=== PATIENT | female | born 1955 | race Caucasian/White ===

== ENCOUNTER 2017-09-21 15:45 | Inpatient (IN) | payer OTHER ==
[~2017-09-21] VITALS: Ht 162.6 cm; Wt 80.2 kg
[~2017-09-21 15:45] MED LIST: ACEBUTCAFT PO; ALBU3IS INH; ALBU90OI; ALBU90OI INH; ALBU90OI6 INH; ASPI81CH PO; AZIT250 PO; BECL80OI INH; BUDE.5 NEB; CEFD300 PO; CEPH500 PO; CHOL10002 PO; CODBUTACEC PO; COMBIVENT RESPIM4 GM INH; CYCL10 PO; Celexa10 MG PO; DIAZ5; DIAZ5 PO; DOXY100; DOXY100 PO; Esgic Tablet1 EACH PO; FIORICET 50-301 EACH PO; FIORICET-COD 51 EACH PO; FLUSAL1005; FLUSAL2505; FLUSAL2505 INH; GABA300 PO; GUAI600T33 PO; HARVONI 90-4001 EACH PO; HYDACE10B PO; HYDACE5 PO; HYDR1TAB94 PO; KETO10 PO; LEVO750 PO; MECL25 PO; META800 PO; Mucinex1200 MG PO; NAPR250 PO; NAPR500 PO; NAPR550 PO; NAPROXEN; NITR.4SL SL; Nitrostat0.4 MG SL; PRED10 PO; PRED20 PO; PRED5 PO; PROM25 PO; Percocet 5-3251 EACH PO; Phenergan25 M1 PO; Prednisone20 MG PO; SPIRIVA; TIOT18 INH; TRAM50 PO; Ventolin Soln3 ML INH; Zithromax250 MG PO; [UNRECOGNIZED DRUG - OTHER]; [UNRECOGNIZED DRUG - SUPPLY] MC
[2017-09-21 17:21] LABS: PCO2 Arterial 39.6 mmHg (35-45); PO2 Arterial 62.6 mmHg (80-100); pH Blood Arterial 7.42 (7.35-7.45)
[2017-09-21 17:29] LABS: BASOPHILS ABSOLUTE AUTO 0.02 K/mm3 (0.00-0.23); BASOPHILS PERCENT AUTO 0 % (0-2); EOSINOPHILS PERCENT AUTO 0 % (0-6); Hematocrit 46.3 % (33.0-51.0); Hemoglobin 15.3 g/dL (11.5-16.0); IMMATURE GRAN ABSOLUTE AUTO 0.02 K/mm3 (0.00-0.10); IMMATURE GRAN PERCENT AUTO 0 % (0-1); LYMPHOCYTES PERCENT AUTO 16 % (21-46); MONOCYTES ABSOLUTE AUTO 0.37 K/mm3 (0.16-1.47); MONOCYTES PERCENT AUTO 7 % (4-13); Mean Corpuscular HGB 30.3 pg (26.0-34.0); Mean Corpuscular Volume 92 fL (80-100); Mean Platelet Volume 9.4 fL (9.1-12.4); NEUTROPHILS PERCENT AUTO 76 % (41-73); Platelet Count 182 K/mm3 (150-400); RDW Coefficient Variation 13.2 % (11.7-14.2); RDW Standard Deviation 44.4 fL (35.1-46.3); Red Blood Cell Count 5.05 M/mm3 (3.80-5.20); White Blood Cell Count 5.11 K/mm3 (4.00-11.30)
[2017-09-21 17:52] LABS: Alanine Aminotransfer (ALT/SGP 28 U/L (12-78); Albumin/Globulin Ratio 1.1 (0.8-1.8); Alk Phos 77 U/L (50-136); Anion Gap 9 mmol/L (6-16); Aspartate Aminotrans (AST/SGOT 27 U/L (12-37); Bilirubin, Total 0.3 mg/dL (0.1-1.0); Blood Urea Nitrogen 8 mg/dL (8-24); Bun/Creatinine Ratio 12.6 (12.0-20.0); CO2, Blood 25 mmol/L (21-32); Calcium, Blood 8.6 mg/dL (8.5-10.1); Chloride, Blood 106 mmol/L (98-108); Creatinine, Blood 0.63 mg/dL (0.40-1.00); Globulin, Blood 3.7 g/dL (2.2-4.0); Glomerular Filtration Rate >60 (60-); Glucose, Blood 86 mg/dL (70-99); Potassium, Blood 4.1 mmol/L (3.5-5.5); Sodium, Blood 140 mmol/L (136-145); Total Protein, Blood 7.7 g/dL (6.4-8.2); Troponin I <0.015 ng/mL (0.000-0.040)
[2017-09-21 20:26] LABS: Influenza A Negative (NEGATIVE); Influenza B Negative (NEGATIVE)
[2017-09-22 06:33] LABS: BASOPHILS PERCENT AUTO 0 % (0-2); EOSINOPHILS PERCENT AUTO 0 % (0-6); Hematocrit 43.8 % (33.0-51.0); Hemoglobin 14.4 g/dL (11.5-16.0); IMMATURE GRAN ABSOLUTE AUTO 0.02 K/mm3 (0.00-0.10); IMMATURE GRAN PERCENT AUTO 0 % (0-1); LYMPHOCYTES ABSOLUTE AUTO 0.48 K/mm3 (0.84-5.20); LYMPHOCYTES PERCENT AUTO 10 % (21-46); MONOCYTES ABSOLUTE AUTO 0.05 K/mm3 (0.16-1.47); MONOCYTES PERCENT AUTO 1 % (4-13); Mean Corpuscular HGB Conc 32.9 g/dL (31.5-36.5); Mean Corpuscular Volume 91 fL (80-100); Mean Platelet Volume 9.7 fL (9.1-12.4); NEUTROPHILS ABSOLUTE AUTO 4.22 K/mm3 (1.96-9.15); NEUTROPHILS PERCENT AUTO 89 % (41-73); Platelet Count 186 K/mm3 (150-400); RDW Coefficient Variation 13.1 % (11.7-14.2); RDW Standard Deviation 44.3 fL (35.1-46.3); White Blood Cell Count 4.77 K/mm3 (4.00-11.30)
[2017-09-22 06:50] LABS: Anion Gap 10 mmol/L (6-16); Blood Urea Nitrogen 9 mg/dL (8-24); Bun/Creatinine Ratio 17.5 (12.0-20.0); CO2, Blood 25 mmol/L (21-32); Calcium, Blood 8.4 mg/dL (8.5-10.1); Chloride, Blood 105 mmol/L (98-108); Creatinine, Blood 0.51 mg/dL (0.40-1.00); Glomerular Filtration Rate >60 (60-); Glucose, Blood 114 mg/dL (70-99); Sodium, Blood 140 mmol/L (136-145)
[2017-09-24] MEDS ORDERED: FIORICET PO (08:34)
[2017-09-24] MEDS ORDERED: CODEINE PO (08:34)
[2017-09-24] MEDS ORDERED: GUAIFENESIN1200 MG PO (08:40)
[2017-09-24] MEDS ORDERED: DELTASONE20 MG PO (08:42)
[2017-09-24] MEDS ORDERED: AZIT250 PO (08:43)
== END 2017-09-24 10:19 | disposition home or self-care (01) | DRG 189 ==
LOC: ER 15:45 → MEDS 19:18 → ENPENDDIS 09-24 08:27 → MEDS 09-24 10:19
PROVIDERS: Emergency Medicine; Internal Medicine; Physician Assistant
DX: J96.01 Acute respiratory failure with hypoxia (principal); J44.1 Chronic obstructive pulmonary disease with (acute) exacerbation; G43.909 Migraine, unspecified, not intractable, without status migrainosus; M79.7 Fibromyalgia; I25.10 Atherosclerotic heart disease of native coronary artery without angina pectoris; F17.200 Nicotine dependence, unspecified, uncomplicated; Z71.6 Tobacco abuse counseling; Z88.5 Allergy status to narcotic agent; Z88.2 Allergy status to sulfonamides; Z88.6 Allergy status to analgesic agent; Z91.030 Bee allergy status; Z79.1 Long term (current) use of non-steroidal anti-inflammatories (NSAID); Z79.82 Long term (current) use of aspirin; Z79.899 Other long term (current) drug therapy
CPT/HCPCS: 36415; 36600; 71046; 80048; 80053; 82803; 84484; 85025; 87040; 87070; 87205; 87804; 93005; 93010; 94640; 94644; 94760; 96374; 96375; 99285; J0456; J1650; J2930; J7030; J7050

== ENCOUNTER 2017-11-19 12:29 | Inpatient (IN) | payer OTHER ==
[~2017-11-19] VITALS: Ht 162.6 cm; Wt 79.9 kg
[~2017-11-19 12:29] MED LIST changes: +CODEINE PO; +DELTASONE20 MG PO; +FIORICET PO; +GUAIFENESIN1200 MG PO
[2017-11-19 13:59] LABS: Hematocrit 45.6 % (33.0-51.0); Hemoglobin 15.2 g/dL (11.5-16.0); Mean Corpuscular HGB 30.1 pg (26.0-34.0); Mean Corpuscular HGB Conc 33.3 g/dL (31.5-36.5); Mean Corpuscular Volume 90 fL (80-100); Mean Platelet Volume 9.6 fL (9.1-12.4); Platelet Count 159 K/mm3 (150-400); RDW Coefficient Variation 13.4 % (11.7-14.2); RDW Standard Deviation 45.1 fL (35.1-46.3); Red Blood Cell Count 5.05 M/mm3 (3.80-5.20); White Blood Cell Count 4.71 K/mm3 (4.00-11.30)
[2017-11-19 14:10] LABS: PCO2 Arterial 40.3 mmHg (35-45); PO2 Arterial 46 mmHg (80-100); pH Blood Arterial 7.46 (7.35-7.45)
[2017-11-19 14:19] LABS: Alanine Aminotransfer (ALT/SGP 31 U/L (12-78); Albumin, Blood 3.6 g/dL (3.4-5.0); Albumin/Globulin Ratio 0.9 (0.8-1.8); Alk Phos 76 U/L (50-136); Anion Gap 8 mmol/L (6-16); Aspartate Aminotrans (AST/SGOT 34 U/L (12-37); Bilirubin, Total 0.3 mg/dL (0.1-1.0); Blood Urea Nitrogen 9 mg/dL (8-24); Bun/Creatinine Ratio 15.7 (12.0-20.0); CO2, Blood 27 mmol/L (21-32); Calcium, Blood 8.6 mg/dL (8.5-10.1); Chloride, Blood 101 mmol/L (98-108); Creatinine, Blood 0.58 mg/dL (0.40-1.00); Globulin, Blood 3.8 g/dL (2.2-4.0); Glomerular Filtration Rate >60 (60-); Glucose, Blood 146 mg/dL (70-99); Potassium, Blood 3.8 mmol/L (3.5-5.5); Sodium, Blood 136 mmol/L (136-145); Total Protein, Blood 7.4 g/dL (6.4-8.2)
[2017-11-19 14:25] LABS: BAND PERCENT MAN 14 % (0-8); BASOPHILS PERCENT MAN 0 % (0-2); EOSINOPHILS PERCENT MAN 0 % (0-6); LYMPHOCYTES ABSOLUTE MAN 0.28 K/mm3 (0.84-5.20); LYMPHOCYTES PERCENT MAN 6 % (21-46); MONOCYTES ABSOLUTE MAN 0.09 K/mm3 (0.16-1.47); MONOCYTES PERCENT MAN 2 % (4-13); NEUTROPHILS ABSOLUTE MAN 4.33 K/mm3 (1.96-9.15); SEG NEUTROPHILS PERCENT MAN 78 % (41-73); TOTAL CELLS COUNTED 100
[2017-11-19] MEDS ORDERED: DULERA 100 MCG/13 GM INH (18:21)
[2017-11-20 06:42] LABS: Influenza A Negative (NEGATIVE); Influenza B Negative (NEGATIVE)
[2017-11-21 05:09] LABS: Hematocrit 43.1 % (33.0-51.0); Hemoglobin 14.5 g/dL (11.5-16.0); Mean Corpuscular HGB 30.3 pg (26.0-34.0); Mean Corpuscular HGB Conc 33.6 g/dL (31.5-36.5); Mean Corpuscular Volume 90 fL (80-100); Mean Platelet Volume 9.7 fL (9.1-12.4); Platelet Count 165 K/mm3 (150-400); RDW Coefficient Variation 13.3 % (11.7-14.2); RDW Standard Deviation 44.4 fL (35.1-46.3); Red Blood Cell Count 4.78 M/mm3 (3.80-5.20); White Blood Cell Count 4.69 K/mm3 (4.00-11.30)
[2017-11-21 05:35] LABS: Anion Gap 9 mmol/L (6-16); Blood Urea Nitrogen 15 mg/dL (8-24); Bun/Creatinine Ratio 23.3 (12.0-20.0); CO2, Blood 28 mmol/L (21-32); Calcium, Blood 8.7 mg/dL (8.5-10.1); Chloride, Blood 102 mmol/L (98-108); Creatinine, Blood 0.65 mg/dL (0.40-1.00); Glomerular Filtration Rate >60 (60-); Glucose, Blood 118 mg/dL (70-99); Potassium, Blood 3.8 mmol/L (3.5-5.5); Sodium, Blood 139 mmol/L (136-145)
[2017-11-22] MEDS ORDERED: BENZ100A PO (10:30)
[2017-11-22] MEDS ORDERED: PROBIOTIC1 EACH PO (10:39)
[2017-11-22] MEDS ORDERED: DOXY100 PO (10:40)
[2017-11-23] MEDS ORDERED: Esgic Tablet1 EACH PO (11:31)
[2017-11-23] MEDS ORDERED: NAPR220 PO (11:35)
[2017-11-23] MEDS ORDERED: ALBU3IS INH (11:37)
[2017-11-23] MEDS ORDERED: Albuterol2.5 MG/0.5 INH (11:38)
== END 2017-11-22 12:20 | disposition home or self-care (01) | DRG 193 ==
LOC: ER 12:29 → MEDS 15:59 → ENPENDDIS 11-22 09:52 → MEDS 11-22 12:20
PROVIDERS: Emergency Medicine; Internal Medicine
DX: J18.9 Pneumonia, unspecified organism (principal); J96.01 Acute respiratory failure with hypoxia; J44.0 Chronic obstructive pulmonary disease with (acute) lower respiratory infection; J44.1 Chronic obstructive pulmonary disease with (acute) exacerbation; G89.29 Other chronic pain; I25.10 Atherosclerotic heart disease of native coronary artery without angina pectoris; Z87.891 Personal history of nicotine dependence; Z88.5 Allergy status to narcotic agent; Z88.2 Allergy status to sulfonamides; Z88.8 Allergy status to other drugs, medicaments and biological substances; Z88.6 Allergy status to analgesic agent; Z91.038 Other insect allergy status; Z79.1 Long term (current) use of non-steroidal anti-inflammatories (NSAID); Z79.82 Long term (current) use of aspirin; Z79.52 Long term (current) use of systemic steroids; Z79.899 Other long term (current) drug therapy
CPT/HCPCS: 36415; 36600; 71045; 71046; 80048; 80053; 82803; 83605; 84145; 85025; 85027; 87040; 87804; 93005; 93010; 94640; 94644; 94760; 94761; 96365; 96366; 96368; 96375; 99285; C1751; J0696; J1650; J1956; J2920; J2930; J7120

== ENCOUNTER 2017-11-23 07:25 | Inpatient (IN) | payer OTHER ==
[~2017-11-23] VITALS: Ht 162.6 cm; Wt 77.0 kg
[~2017-11-23 07:25] MED LIST changes: +BENZ100A PO; +DULERA 100 MCG/13 GM INH; +PROBIOTIC1 EACH PO
[2017-11-23 08:13] LABS: BASOPHILS ABSOLUTE AUTO 0.02 K/mm3 (0.00-0.23); BASOPHILS PERCENT AUTO 0 % (0-2); EOSINOPHILS ABSOLUTE AUTO 0.01 K/mm3 (0.00-0.68); EOSINOPHILS PERCENT AUTO 0 % (0-6); Hematocrit 49.2 % (33.0-51.0); IMMATURE GRAN ABSOLUTE AUTO 0.06 K/mm3 (0.00-0.10); IMMATURE GRAN PERCENT AUTO 1 % (0-1); LYMPHOCYTES ABSOLUTE AUTO 3.19 K/mm3 (0.84-5.20); LYMPHOCYTES PERCENT AUTO 47 % (21-46); MONOCYTES ABSOLUTE AUTO 0.57 K/mm3 (0.16-1.47); MONOCYTES PERCENT AUTO 8 % (4-13); Mean Corpuscular HGB 30.4 pg (26.0-34.0); Mean Corpuscular HGB Conc 32.5 g/dL (31.5-36.5); Mean Platelet Volume 9.1 fL (9.1-12.4); NEUTROPHILS PERCENT AUTO 44 % (41-73); Platelet Count 199 K/mm3 (150-400); RDW Coefficient Variation 13.3 % (11.7-14.2); RDW Standard Deviation 45.8 fL (35.1-46.3); Red Blood Cell Count 5.26 M/mm3 (3.80-5.20); White Blood Cell Count 6.85 K/mm3 (4.00-11.30)
[2017-11-23 08:19] LABS: Mean Corpuscular Volume 94 fL (80-100)
[2017-11-23 08:20] LABS: Anion Gap 7 mmol/L (6-16); Blood Urea Nitrogen 16 mg/dL (8-24); CO2, Blood 29 mmol/L (21-32); Calcium, Blood 8.8 mg/dL (8.5-10.1); Chloride, Blood 102 mmol/L (98-108); Creatinine, Blood 0.62 mg/dL (0.40-1.00); Glomerular Filtration Rate >60 (60-); Glucose, Blood 94 mg/dL (70-99); Potassium, Blood 3.5 mmol/L (3.5-5.5); Sodium, Blood 138 mmol/L (136-145)
[2017-11-23 08:26] LABS: PCO2 Arterial 44.7 mmHg (35-45); PO2 Arterial 59.2 mmHg (80-100); pH Blood Arterial 7.44 (7.35-7.45)
[2017-11-23] MEDS ORDERED: Esgic Tablet1 EACH PO (11:31)
[2017-11-23] MEDS ORDERED: NAPR220 PO (11:35)
[2017-11-23] MEDS ORDERED: ALBU3IS INH (11:37)
[2017-11-23] MEDS ORDERED: Albuterol2.5 MG/0.5 INH (11:38)
[2017-11-24 05:12] LABS: BASOPHILS ABSOLUTE AUTO 0.01 K/mm3 (0.00-0.23); BASOPHILS PERCENT AUTO 0 % (0-2); EOSINOPHILS PERCENT AUTO 0 % (0-6); Hematocrit 42.3 % (33.0-51.0); Hemoglobin 14.2 g/dL (11.5-16.0); IMMATURE GRAN ABSOLUTE AUTO 0.04 K/mm3 (0.00-0.10); IMMATURE GRAN PERCENT AUTO 1 % (0-1); LYMPHOCYTES ABSOLUTE AUTO 0.95 K/mm3 (0.84-5.20); LYMPHOCYTES PERCENT AUTO 19 % (21-46); MONOCYTES ABSOLUTE AUTO 0.16 K/mm3 (0.16-1.47); MONOCYTES PERCENT AUTO 3 % (4-13); Mean Corpuscular HGB 30.3 pg (26.0-34.0); Mean Corpuscular HGB Conc 33.6 g/dL (31.5-36.5); Mean Platelet Volume 9.3 fL (9.1-12.4); NEUTROPHILS PERCENT AUTO 77 % (41-73); Platelet Count 158 K/mm3 (150-400); RDW Coefficient Variation 13.2 % (11.7-14.2); RDW Standard Deviation 43.5 fL (35.1-46.3); Red Blood Cell Count 4.69 M/mm3 (3.80-5.20); White Blood Cell Count 4.96 K/mm3 (4.00-11.30)
[2017-11-24 05:15] LABS: Mean Corpuscular Volume 90 fL (80-100)
[2017-11-24 05:40] LABS: Albumin, Blood 3.2 g/dL (3.4-5.0); Anion Gap 8 mmol/L (6-16); Blood Urea Nitrogen 10 mg/dL (8-24); Bun/Creatinine Ratio 21.4 (12.0-20.0); CO2, Blood 28 mmol/L (21-32); Calcium, Blood 8.4 mg/dL (8.5-10.1); Chloride, Blood 104 mmol/L (98-108); Creatinine, Blood 0.47 mg/dL (0.40-1.00); Glomerular Filtration Rate >60 (60-); Glucose, Blood 143 mg/dL (70-99); Phosphorus, Blood 2.8 mg/dL (2.5-4.9); Potassium, Blood 4.2 mmol/L (3.5-5.5); Sodium, Blood 140 mmol/L (136-145)
[2017-11-30] MEDS ORDERED: ALBU2.5V5 NEB (12:22)
[2017-11-30] MEDS ORDERED: ACIDOPHILUS1 EACH PO (12:38)
[2017-11-30] MEDS ORDERED: Prednisone10 MG PO (12:46)
== END 2017-11-30 13:25 | disposition home or self-care (01) | DRG 189 ==
LOC: ER 07:25 → MEDS 10:03 → PCU 10:03 → MEDS 11-25 18:15 → ENPENDDIS 11-30 12:00 → MEDS 11-30 13:25
PROVIDERS: Emergency Medicine; Family Medicine
PROC: 5A09357 Assistance with Respiratory Ventilation, Less than 24 Consecutive Hours, Continuous Positive Airway Pressure (ICD-10-PCS; principal; 2017-11-23)
DX: J96.21 Acute and chronic respiratory failure with hypoxia (principal); J44.1 Chronic obstructive pulmonary disease with (acute) exacerbation; M50.30 Other cervical disc degeneration, unspecified cervical region; M19.90 Unspecified osteoarthritis, unspecified site; Z87.891 Personal history of nicotine dependence; Z88.5 Allergy status to narcotic agent; Z88.2 Allergy status to sulfonamides; Z88.8 Allergy status to other drugs, medicaments and biological substances; Z88.6 Allergy status to analgesic agent; Z88.1 Allergy status to other antibiotic agents; Z91.038 Other insect allergy status; Z79.52 Long term (current) use of systemic steroids; Z79.899 Other long term (current) drug therapy
CPT/HCPCS: 36415; 36600; 71045; 71046; 80048; 80069; 82803; 85025; 93005; 93010; 94010; 94640; 94660; 94664; 94667; 94760; 94761; 94762; 96361; 96374; 96375; 98960; 99285; 99407; J1650; J1885; J1956; J2060; J2405; J2920; J2930; J7030

== ENCOUNTER 2018-02-13 14:30 | Inpatient (IN) | payer OTHER ==
[~2018-02-13] VITALS: Ht 160 cm; Wt 78.0 kg
[~2018-02-13 14:30] MED LIST changes: +ACIDOPHILUS1 EACH PO; +ALBU2.5V5 NEB; +Albuterol2.5 MG/0.5 INH; +NAPR220 PO; +Prednisone10 MG PO
[2018-02-13 15:23] LABS: BASOPHILS ABSOLUTE AUTO 0.01 K/mm3 (0.00-0.23); BASOPHILS PERCENT AUTO 0 % (0-2); EOSINOPHILS PERCENT AUTO 0 % (0-6); Hematocrit 49.7 % (33.0-51.0); Hemoglobin 16.4 g/dL (11.5-16.0); IMMATURE GRAN ABSOLUTE AUTO 0.02 K/mm3 (0.00-0.10); IMMATURE GRAN PERCENT AUTO 0 % (0-1); LYMPHOCYTES ABSOLUTE AUTO 0.57 K/mm3 (0.84-5.20); LYMPHOCYTES PERCENT AUTO 12 % (21-46); MONOCYTES ABSOLUTE AUTO 0.21 K/mm3 (0.16-1.47); MONOCYTES PERCENT AUTO 5 % (4-13); Mean Corpuscular HGB 31.4 pg (26.0-34.0); Mean Corpuscular Volume 95 fL (80-100); Mean Platelet Volume 9.1 fL (9.1-12.4); NEUTROPHILS ABSOLUTE AUTO 3.79 K/mm3 (1.96-9.15); NEUTROPHILS PERCENT AUTO 82 % (41-73); Platelet Count 206 K/mm3 (150-400); RDW Coefficient Variation 13.9 % (11.7-14.2); RDW Standard Deviation 48.9 fL (35.1-46.3); Red Blood Cell Count 5.23 M/mm3 (3.80-5.20)
[2018-02-13 15:46] LABS: Alanine Aminotransfer (ALT/SGP 41 U/L (12-78); Albumin/Globulin Ratio 1.1 (0.8-1.8); Alk Phos 66 U/L (50-136); Anion Gap 9 mmol/L (6-16); Aspartate Aminotrans (AST/SGOT 42 U/L (12-37); Bilirubin, Total 0.3 mg/dL (0.1-1.0); Blood Urea Nitrogen 8 mg/dL (8-24); Bun/Creatinine Ratio 13.1 (12.0-20.0); CO2, Blood 24 mmol/L (21-32); Calcium, Blood 9.1 mg/dL (8.5-10.1); Chloride, Blood 106 mmol/L (98-108); Creatinine, Blood 0.61 mg/dL (0.40-1.00); Globulin, Blood 3.8 g/dL (2.2-4.0); Glomerular Filtration Rate >60 (60-); Glucose, Blood 131 mg/dL (70-99); Potassium, Blood 4.2 mmol/L (3.5-5.5); Sodium, Blood 139 mmol/L (136-145); Total Protein, Blood 7.8 g/dL (6.4-8.2); Troponin I <0.015 ng/mL (0.000-0.040)
[2018-02-13] MEDS ORDERED: BUDE6HFA INH ×2 (16:11→16:34)
[2018-02-13] MEDS ORDERED: Mucinex1200 MG PO (16:31)
[2018-02-13] MEDS ORDERED: NITR.4SL SL (16:31)
[2018-02-13] MEDS ORDERED: BENZ100A PO (16:31)
[2018-02-13] MEDS ORDERED: Solaraze100 GM TP (16:33)
[2018-02-13] MEDS ORDERED: CYCL10 PO (16:33)
[2018-02-13] MEDS ORDERED: PROM25 PO (16:34)
[2018-02-14 05:21] LABS: BASOPHILS ABSOLUTE AUTO 0.01 K/mm3 (0.00-0.23); BASOPHILS PERCENT AUTO 0 % (0-2); EOSINOPHILS ABSOLUTE AUTO 0.03 K/mm3 (0.00-0.68); EOSINOPHILS PERCENT AUTO 1 % (0-6); Hematocrit 44.4 % (33.0-51.0); Hemoglobin 14.3 g/dL (11.5-16.0); IMMATURE GRAN ABSOLUTE AUTO 0.01 K/mm3 (0.00-0.10); IMMATURE GRAN PERCENT AUTO 0 % (0-1); LYMPHOCYTES ABSOLUTE AUTO 0.59 K/mm3 (0.84-5.20); LYMPHOCYTES PERCENT AUTO 25 % (21-46); MONOCYTES ABSOLUTE AUTO 0.08 K/mm3 (0.16-1.47); MONOCYTES PERCENT AUTO 3 % (4-13); Mean Corpuscular HGB 31.2 pg (26.0-34.0); Mean Corpuscular HGB Conc 32.2 g/dL (31.5-36.5); Mean Corpuscular Volume 97 fL (80-100); NEUTROPHILS ABSOLUTE AUTO 1.68 K/mm3 (1.96-9.15); NEUTROPHILS PERCENT AUTO 70 % (41-73); RDW Coefficient Variation 13.6 % (11.7-14.2); Red Blood Cell Count 4.59 M/mm3 (3.80-5.20)
[2018-02-14 05:27] LABS: Platelet Count 135 K/mm3 (150-400)
[2018-02-14 05:57] LABS: Anion Gap 10 mmol/L (6-16); Blood Urea Nitrogen 11 mg/dL (8-24); Bun/Creatinine Ratio 19.7 (12.0-20.0); CO2, Blood 25 mmol/L (21-32); Calcium, Blood 8.4 mg/dL (8.5-10.1); Chloride, Blood 104 mmol/L (98-108); Creatinine, Blood 0.56 mg/dL (0.40-1.00); Glomerular Filtration Rate >60 (60-); Glucose, Blood 122 mg/dL (70-99); Potassium, Blood 4.8 mmol/L (3.5-5.5); Sodium, Blood 139 mmol/L (136-145)
[2018-02-18 03:49] LABS: BASOPHILS ABSOLUTE AUTO 0.01 K/mm3 (0.00-0.23); BASOPHILS PERCENT AUTO 0 % (0-2); EOSINOPHILS PERCENT AUTO 0 % (0-6); Hematocrit 43.5 % (33.0-51.0); Hemoglobin 14.4 g/dL (11.5-16.0); IMMATURE GRAN ABSOLUTE AUTO 0.07 K/mm3 (0.00-0.10); IMMATURE GRAN PERCENT AUTO 1 % (0-1); LYMPHOCYTES PERCENT AUTO 37 % (21-46); MONOCYTES ABSOLUTE AUTO 0.48 K/mm3 (0.16-1.47); MONOCYTES PERCENT AUTO 7 % (4-13); Mean Corpuscular HGB 31.2 pg (26.0-34.0); Mean Corpuscular HGB Conc 33.1 g/dL (31.5-36.5); Mean Platelet Volume 9.3 fL (9.1-12.4); NEUTROPHILS ABSOLUTE AUTO 3.55 K/mm3 (1.96-9.15); NEUTROPHILS PERCENT AUTO 54 % (41-73); Platelet Count 179 K/mm3 (150-400); RDW Coefficient Variation 13.2 % (11.7-14.2); RDW Standard Deviation 45.4 fL (35.1-46.3); Red Blood Cell Count 4.62 M/mm3 (3.80-5.20); White Blood Cell Count 6.51 K/mm3 (4.00-11.30)
[2018-02-18 03:51] LABS: Mean Corpuscular Volume 94 fL (80-100)
[2018-02-18 04:07] LABS: Anion Gap 6 mmol/L (6-16); Blood Urea Nitrogen 14 mg/dL (8-24); Bun/Creatinine Ratio 22.3 (12.0-20.0); CO2, Blood 33 mmol/L (21-32); Chloride, Blood 102 mmol/L (98-108); Creatinine, Blood 0.63 mg/dL (0.40-1.00); Glomerular Filtration Rate >60 (60-); Glucose, Blood 86 mg/dL (70-99); Potassium, Blood 3.9 mmol/L (3.5-5.5); Sodium, Blood 141 mmol/L (136-145)
[2018-02-21] MEDS ORDERED: Brovana15 MCG/2 M (09:54)
[2018-02-21] MEDS ORDERED: ACIDOPHILUS LA1 EACH PO (09:56)
[2018-02-21] MEDS ORDERED: TIOT18 INH (09:57)
[2018-02-21] MEDS ORDERED: NYST100000 PO (09:57)
== END 2018-02-21 10:19 | disposition home or self-care (01) | DRG 189 ==
LOC: ER 14:30 → PCU 16:39 → MEDS 02-20 10:34 → ENPENDDIS 02-21 09:58 → MEDS 02-21 10:19
PROVIDERS: Emergency Medicine; Internal Medicine; Nurse Practitioner Acute Care
DX: J96.01 Acute respiratory failure with hypoxia (principal); J44.1 Chronic obstructive pulmonary disease with (acute) exacerbation; B37.0 Candidal stomatitis; Z99.81 Dependence on supplemental oxygen; M47.812 Spondylosis without myelopathy or radiculopathy, cervical region; M19.90 Unspecified osteoarthritis, unspecified site; Z87.891 Personal history of nicotine dependence; R42 Dizziness and giddiness; G89.29 Other chronic pain; Z86.018 Personal history of other benign neoplasm
CPT/HCPCS: 36415; 71046; 80048; 80053; 84145; 84484; 85025; 85027; 87070; 87205; 93005; 93010; 94640; 94644; 94660; 94762; 96374; 96375; 99285; C1751; J1650; J1956; J2920; J2930; J7030; J7605

== ENCOUNTER 2018-09-05 12:38 | Emergency (ER) | payer OTHER ==
[~2018-09-05] VITALS: Ht 160 cm; Wt 82.5 kg
[~2018-09-05 12:38] MED LIST changes: +ACIDOPHILUS LA1 EACH PO; +BUDE6HFA INH; +Brovana15 MCG/2 M; +NYST100000 PO; +Solaraze100 GM TP
[2018-09-05 13:35] LABS: BASOPHILS ABSOLUTE AUTO 0.05 K/mm3 (0.00-0.23); BASOPHILS PERCENT AUTO 1 % (0-2); EOSINOPHILS ABSOLUTE AUTO 0.04 K/mm3 (0.00-0.68); EOSINOPHILS PERCENT AUTO 1 % (0-6); Hematocrit 46.8 % (33.0-51.0); IMMATURE GRAN ABSOLUTE AUTO 0.05 K/mm3 (0.00-0.10); IMMATURE GRAN PERCENT AUTO 1 % (0-1); LYMPHOCYTES ABSOLUTE AUTO 1.07 K/mm3 (0.84-5.20); LYMPHOCYTES PERCENT AUTO 14 % (21-46); MONOCYTES ABSOLUTE AUTO 0.24 K/mm3 (0.16-1.47); MONOCYTES PERCENT AUTO 3 % (4-13); Mean Corpuscular HGB 30.5 pg (26.0-34.0); Mean Corpuscular HGB Conc 32.1 g/dL (31.5-36.5); Mean Corpuscular Volume 95 fL (80-100); Mean Platelet Volume 9.2 fL (9.1-12.4); NEUTROPHILS ABSOLUTE AUTO 6.03 K/mm3 (1.96-9.15); NEUTROPHILS PERCENT AUTO 81 % (41-73); Platelet Count 226 K/mm3 (150-400); RDW Coefficient Variation 13.5 % (11.7-14.2); RDW Standard Deviation 48.3 fL (35.1-46.3); Red Blood Cell Count 4.91 M/mm3 (3.80-5.20); White Blood Cell Count 7.48 K/mm3 (4.00-11.30)
[2018-09-05 13:56] LABS: Alanine Aminotransfer (ALT/SGP 21 U/L (12-78); Albumin/Globulin Ratio 1.2 (0.8-1.8); Alk Phos 61 U/L (50-136); Anion Gap 4 mmol/L (6-16); Aspartate Aminotrans (AST/SGOT 16 U/L (12-37); Bilirubin, Total 0.3 mg/dL (0.1-1.0); Blood Urea Nitrogen 13 mg/dL (8-24); Bun/Creatinine Ratio 20.9 (12.0-20.0); CO2, Blood 26 mmol/L (21-32); Calcium, Blood 8.4 mg/dL (8.5-10.1); Chloride, Blood 109 mmol/L (98-108); Creatinine, Blood 0.62 mg/dL (0.40-1.00); Globulin, Blood 3.2 g/dL (2.2-4.0); Glomerular Filtration Rate >60 (60-); Glucose, Blood 135 mg/dL (70-99); Potassium, Blood 4.1 mmol/L (3.5-5.5); Sodium, Blood 139 mmol/L (136-145); Total Protein, Blood 7.2 g/dL (6.4-8.2); Troponin I <0.015 ng/mL (0.000-0.040)
== END 2018-09-05 15:36 | disposition home or self-care (01) ==
LOC: ER 12:38
PROVIDERS: Physician Assistant
DX: R07.9 Chest pain, unspecified (principal); J44.9 Chronic obstructive pulmonary disease, unspecified
CPT/HCPCS: 36415; 71046; 80053; 84484; 85025; 93005; 93010; 99285-25

== ENCOUNTER 2019-10-08 11:44 | Emergency (ER) | payer OTHER ==
[~2019-10-08] VITALS: Ht 160 cm; Wt 93.0 kg
[~2019-10-08 11:44] MED LIST changes: -Prednisone10 MG PO
[2019-10-08] MEDS ORDERED: AZIT250 PO (14:35)
[2019-10-08] MEDS ORDERED: ZOLP10 (14:38)
[2019-10-08] MEDS ORDERED: BUDE10.22 INH (14:38)
== END 2019-10-08 15:30 | disposition home or self-care (01) ==
LOC: ER 11:44
DX: M54.2 Cervicalgia (principal); G89.29 Other chronic pain; J44.9 Chronic obstructive pulmonary disease, unspecified; Z88.2 Allergy status to sulfonamides; Z88.5 Allergy status to narcotic agent; Z79.899 Other long term (current) drug therapy; Z87.891 Personal history of nicotine dependence
CPT/HCPCS: 72125; 96372; 99284-25; J1170; J3010

== ENCOUNTER 2020-01-21 13:46 | Day surgery (SDC) | payer OTHER ==
[~2020-01-21] VITALS: Ht 160 cm; Wt 91.7 kg
[~2020-01-21 13:46] MED LIST changes: +BUDE10.22 INH; +ZOLP10
--- NOTE | 2020-01-21 14:49 | NUR ---
01/21/20 Kimi9 Miguel Angel,Keanu four iv attempts, left wrist successful
== END 2020-01-21 15:38 | disposition home or self-care (01) ==
LOC: ORSCSDS 13:46
PROVIDERS: Internal Medicine Gastroenterology
PROC: 0DJ08ZZ Inspection of Upper Intestinal Tract, Via Natural or Artificial Opening Endoscopic (ICD-10-PCS; principal; 2020-01-21 15:15)
DX: K74.60 Unspecified cirrhosis of liver (principal); Z13.810 Encounter for screening for upper gastrointestinal disorder; I25.10 Atherosclerotic heart disease of native coronary artery without angina pectoris; G47.33 Obstructive sleep apnea (adult) (pediatric); A69.20 Lyme disease, unspecified; E66.9 Obesity, unspecified; Z68.35 Body mass index [BMI] 35.0-35.9, adult; Z79.82 Long term (current) use of aspirin; Z87.891 Personal history of nicotine dependence; Z79.899 Other long term (current) drug therapy
CPT/HCPCS: J2250; J2704; J7120

== ENCOUNTER 2021-01-19 06:56 | Emergency (ER) | payer OTHER ==
[~2021-01-19] VITALS: Ht 160 cm; Wt 95.2 kg
[2021-01-19] MEDS ORDERED: ROFL500T (07:33)
[2021-01-19] MEDS ORDERED: METPRE4DP PO (08:29)
[2021-01-19] MEDS ORDERED: Percocet 5-3251 EACH PO (08:29)
== END 2021-01-19 08:48 | disposition home or self-care (01) ==
LOC: ER 06:56
DX: M54.5 Low back pain (principal); G89.29 Other chronic pain; J44.9 Chronic obstructive pulmonary disease, unspecified; Z79.899 Other long term (current) drug therapy; Z87.891 Personal history of nicotine dependence
CPT/HCPCS: 96372; 99283-25; A9270; J1885

== ENCOUNTER 2021-09-04 14:55 | Emergency (ER) | payer OTHER ==
[~2021-09-04] VITALS: Ht 160 cm; Wt 81.7 kg
[~2021-09-04 14:55] MED LIST changes: +METPRE4DP PO; +ROFL500T
[2021-09-04 16:35] LABS: Influenza A, PCR NEGATIVE (NEGATIVE); Influenza B, PCR NEGATIVE (NEGATIVE); Resp Syncytial Virus, PCR NEGATIVE (NEGATIVE); SARS-Cov-2 (COVID-19) PCR, MMC NEGATIVE (NEGATIVE)
[2021-09-04 17:35] LABS: BASOPHILS ABSOLUTE AUTO 0.03 K/mm3 (0.00-0.23); BASOPHILS PERCENT AUTO 0 % (0-2); EOSINOPHILS ABSOLUTE AUTO 0.03 K/mm3 (0.00-0.68); EOSINOPHILS PERCENT AUTO 0 % (0-6); Hematocrit 48.2 % (33.0-51.0); Hemoglobin 15.5 g/dL (11.5-16.0); IMMATURE GRAN ABSOLUTE AUTO 0.09 K/mm3 (0.00-0.10); IMMATURE GRAN PERCENT AUTO 1 % (0-1); LYMPHOCYTES ABSOLUTE AUTO 1.35 K/mm3 (0.84-5.20); LYMPHOCYTES PERCENT AUTO 16 % (21-46); MONOCYTES ABSOLUTE AUTO 0.42 K/mm3 (0.16-1.47); MONOCYTES PERCENT AUTO 5 % (4-13); Mean Corpuscular HGB 30.2 pg (26.0-34.0); Mean Corpuscular HGB Conc 32.2 g/dL (31.5-36.5); Mean Corpuscular Volume 94 fL (80-100); Mean Platelet Volume 8.8 fL (9.1-12.4); NEUTROPHILS ABSOLUTE AUTO 6.55 K/mm3 (1.96-9.15); NEUTROPHILS PERCENT AUTO 77 % (41-73); Platelet Count 235 K/mm3 (150-400); RDW Coefficient Variation 14.5 % (11.7-14.2); RDW Standard Deviation 50.8 fL (35.1-46.3); Red Blood Cell Count 5.14 M/mm3 (3.80-5.20); White Blood Cell Count 8.47 K/mm3 (4.00-11.30)
[2021-09-04 17:59] LABS: Alanine Aminotransfer (ALT/SGP 30 U/L (12-78); Albumin, Blood 3.9 g/dL (3.4-5.0); Albumin/Globulin Ratio 1.3 (0.8-1.8); Alk Phos 83 U/L (50-136); Anion Gap 6 mmol/L (6-16); Aspartate Aminotrans (AST/SGOT 16 U/L (12-37); Bilirubin, Total 0.4 mg/dL (0.1-1.0); Blood Urea Nitrogen 13 mg/dL (8-24); Bun/Creatinine Ratio 18.1 (12.0-20.0); CO2, Blood 28 mmol/L (21-32); Calcium, Blood 8.9 mg/dL (8.5-10.1); Chloride, Blood 107 mmol/L (98-108); Creatinine, Blood 0.72 mg/dL (0.40-1.00); Globulin, Blood 3.1 g/dL (2.2-4.0); Glomerular Filtration Rate >60 (60-); Glucose, Blood 115 mg/dL (70-99); Potassium, Blood 4.2 mmol/L (3.5-5.5); Sodium, Blood 141 mmol/L (136-145); Troponin I <0.015 ng/mL (0.000-0.040)
[2021-09-04] MEDS ORDERED: Prednisone20 MG PO (20:26)
== END 2021-09-04 20:51 | disposition home or self-care (01) ==
LOC: ER 14:55
PROVIDERS: Physician Assistant
DX: J44.1 Chronic obstructive pulmonary disease with (acute) exacerbation (principal); M19.90 Unspecified osteoarthritis, unspecified site; Z91.038 Other insect allergy status; Z87.891 Personal history of nicotine dependence; Z91.048 Other nonmedicinal substance allergy status; Z88.6 Allergy status to analgesic agent; Z88.5 Allergy status to narcotic agent; Z88.2 Allergy status to sulfonamides; Z88.1 Allergy status to other antibiotic agents; Z79.899 Other long term (current) drug therapy; Z20.822 Contact with and (suspected) exposure to COVID-19
CPT/HCPCS: 0241U; 71045; 80053; 83880; 84484; 85025; 93005; 93010; 94640; J2930

== ENCOUNTER 2022-09-28 06:06 | Day surgery (SDC) | payer OTHER ==
[~2022-09-28] VITALS: Ht 160 cm; Wt 77.2 kg
[2022-09-28] MEDS ORDERED: ERGO400 (06:35)
[2022-09-28] MEDS ORDERED: Flonase 0.05% N16 GM (06:36)
[2022-09-28] MEDS ORDERED: EPIPEN0.3 MG/0.3 (06:36)
[2022-09-28] MEDS ORDERED: FLUT1DIS8 (06:36)
[2022-09-28] MEDS ORDERED: ALLEGRA ALLERG180 MG (06:36)
[2022-09-28] MEDS ORDERED: IPRAT-ALBUT 0.5-3 ML (06:37)
[2022-09-28] MEDS ORDERED: HYDHCL25 (06:37)
[2022-09-28] MEDS ORDERED: NITR.4SL (06:37)
--- NOTE | 2022-09-28 07:36 | NUR ---
09/28/22 0736 Amy Mejia GIVEN AND 4CC'S 2% LIDOCAINE IN THE BACK OF PT'S THROAT PER MD VIDES PRE PROCEDURE.
== END 2022-09-28 08:25 | disposition home or self-care (01) ==
LOC: ORSCSDS 06:06
PROVIDERS: Internal Medicine Gastroenterology
PROC: 0DJ08ZZ Inspection of Upper Intestinal Tract, Via Natural or Artificial Opening Endoscopic (ICD-10-PCS; principal; 2022-09-28 07:30)
DX: K74.60 Unspecified cirrhosis of liver (principal); J44.9 Chronic obstructive pulmonary disease, unspecified; Z86.19 Personal history of other infectious and parasitic diseases; E66.9 Obesity, unspecified; Z68.30 Body mass index [BMI] 30.0-30.9, adult; A69.20 Lyme disease, unspecified; Z87.891 Personal history of nicotine dependence; Z79.899 Other long term (current) drug therapy
CPT/HCPCS: J2704; J7120

== ENCOUNTER 2023-08-14 08:05 | Day surgery (SDC) | payer OTHER ==
[~2023-08-14] VITALS: Ht 160 cm; Wt 74.5 kg
[2023-08-14] VITALS (15 sets, daily range): BP systolic 91–129; BP diastolic 59–94
[~2023-08-14 08:05] MED LIST changes: +ALLEGRA ALLERG180 MG; +ALLEGRA ALLERG180 MG PO; +BUDE.25 NEB; +BUTALBITAL-ASA1 EACH PO; +EPIPEN0.3 MG/0.3; +EPIPEN0.3 MG/0.3 IM; +ERGO400; +FLUT1DIS8; +FLUT1DIS8 INH; +Flonase 0.05% N16 GM; +GUAI200 PO; +HYDHCL10EL; +HYDHCL25; +Hydroxyzine HCl25 MG PO; +IPRAT-ALBUT 0.5-3 ML; +MONT10T PO; +NITR.4SL; +ROFL500T PO; +SPIRIVA RESPIMAT4 G3 INH; +TIZANIDINE HCL212 PO; +VITAMIN D310 MC4 PO
--- NOTE | 2023-08-14 08:27 | NUR ---
PT TO DAY SURGERY FOR LEFT KNEE REPLACEMENT. PLAN OF CARE DISCUSSED. PT HAS RIDE HOME SCHEDULED.
--- NOTE | 2023-08-14 09:14 | NUR ---
20G 2 INCH IV
--- NOTE | 2023-08-14 10:45 | NUR ---
08/14/23 1045 Apurva Lizarraga 1GM OF VANCOMYCIN POWDER INSTILLED INTO JOINT CAPSULE AT END OF CASE BEFORE CAPSULE WAS CLOSED.
--- NOTE | 2023-08-14 12:45 | NUR ---
PATIENT ARRIVED FROM PACU TODAY. POD 0 LEFT TOTAL KNEE PATIENT IS A&OX4. VS ARE WNL AND IS ON RA. PATIENT REPORTS PAIN FROM HER "MIGRAINE" BUT NOT FROM HER KNEE. SHE DID HAVE A SPINAL PLACED DURING THE PROCEDURE AND DENIES PAIN FROM HER LEFT KNEE. SHE STATES "I CAN FEEL SENSATION BUT STILL FEELING NUMB FROM THE TOP OF MY KNEES DOWN". SHE IS ABLE TO WIGGLE HER TOES WHEN ASKED. PEDAL PULSES ARE STRONG. PATIENT HAS TINA WRAP ON THE LEFT KNEE THAT IS C/D/I. POLAR PACK IN PLACE. SHE IS TOLERATING SMALL AMOUNTS OF PO INTAKE. PATIENT IS LAYING IN BED WITH CALL LIGHT IN REACH.
--- NOTE | 2023-08-14 15:31 | NUR ---
SHIFT SUMMARY: POD 0 LEFT TOTAL KNEE PATIENT IS A&OX4. VS ARE WNL AND IS ON RA. PATIENT REPORTS 6/10 PAIN TO HIS LEFT KNEE BUT HAS BEEN MANAGED WITH PO OXY. PATIENT DID HAVE A SPINAL DURING THE PROCEDURE AND STILL REPORTS NUMBNESS FROM BILATERAL MID CALFS DOWN BUT SHE IS ABLE TO MOVE HER TOES WHEN ASKED. HER LEFT KNEE HAS AN TINA WRAP THAT IS C/D/I. PATIENT IS TOLERATING PO INTAKE AND DENIES NAUSEA/VOMITING. SHE IS LAYING IN BED WITH CALL LIGHT IN REACH.
[2023-08-15 02:13] VITALS: BP 114/76
--- NOTE | 2023-08-15 05:19 | NUR ---
SHIFT SUMMARY POD1 L TKA. SENSATION AND CIRCULATION REMAIN INTACT IN LLE, DRESSING REMAINS C/D/I. CRYO REMAINED IN PLACE T/O THE NIGHT. VSS. PT STRUGGLED WITH PAIN CONTROL T/O THE NIGHT, MEDICATED WITH SCHEDULED AND PRN'S. PT WAS UNABLE TO SLEEP MUCH D/T THIS. TOLLERATED AMBULATING TO THE BATHROOM MULTIPLE TIMES T/O THE NIGHT. VOIDING W/O DIFFICULTY. TOLLERATING PO INTAKE. PLAN FOR PHYSICAL THERAPY THIS AM AND D/C HOME
[2023-08-15 07:32] LABS: BASOPHILS ABSOLUTE AUTO 0.03 K/mm3 (0.00-0.23); BASOPHILS PERCENT AUTO 0 % (0-2); EOSINOPHILS ABSOLUTE AUTO 0.03 K/mm3 (0.00-0.68); EOSINOPHILS PERCENT AUTO 0 % (0-6); Hematocrit 37.1 % (33.0-51.0); Hemoglobin 12.3 g/dL (11.5-16.0); IMMATURE GRAN ABSOLUTE AUTO 0.03 K/mm3 (0.00-0.10); IMMATURE GRAN PERCENT AUTO 0 % (0-1); LYMPHOCYTES ABSOLUTE AUTO 0.82 K/mm3 (0.84-5.20); LYMPHOCYTES PERCENT AUTO 11 % (21-46); MONOCYTES ABSOLUTE AUTO 0.86 K/mm3 (0.16-1.47); MONOCYTES PERCENT AUTO 11 % (4-13); Mean Corpuscular HGB 30.3 pg (26.0-34.0); Mean Corpuscular HGB Conc 33.2 g/dL (31.5-36.5); Mean Corpuscular Volume 91 fL (80-100); Mean Platelet Volume 8.6 fL (9.1-12.4); NEUTROPHILS ABSOLUTE AUTO 5.81 K/mm3 (1.96-9.15); NEUTROPHILS PERCENT AUTO 77 % (41-73); Platelet Count 223 K/mm3 (150-400); RDW Coefficient Variation 13.1 % (11.7-14.2); RDW Standard Deviation 44.2 fL (35.1-46.3); Red Blood Cell Count 4.06 M/mm3 (3.80-5.20); White Blood Cell Count 7.58 K/mm3 (4.00-11.30)
[2023-08-15 07:45] LABS: Calcium, Blood 8.3 mg/dL (8.5-10.1); Creatinine, Blood 0.6 mg/dL (0.40-1.00); Potassium, Blood 3.9 mmol/L (3.5-5.5)
[2023-08-15 07:57] VITALS: BP 103/75
[2023-08-15 14:30] VITALS: BP 117/66
--- NOTE | 2023-08-15 18:39 | NUR ---
SHIFT SUMMARY PATIENT A/O X4- POD1 L TOTAL KNEE. AQUACEL IN PLACE W/ SCANT DRAINAGE. AMBULATING WELL W/ FWW, GB, AND SBA. VOIDING WELL. TOLERATING PO INTAKE. PAIN MEDICATION CHANGED AND PT SEEMS TO BE HAVING BETTER PAIN CONTROL. PT WORKED WITH THERAPY TODAY BUT DID NOT CLEAR. WILL PLAN TO DC TOMORROW. WILL REPORT TO ONCOMING RN.
[2023-08-15 19:49] VITALS: BP 116/72
[2023-08-16 03:56] VITALS: BP 114/67
--- NOTE | 2023-08-16 04:16 | NUR ---
SHIFT SUMMARY POD2 L TKA. SENSATION AND CIRCULATION REMAINS INTACT IN LLE. BRUISING AND SWELLING NOTED IN EXTREMITY AROUND INCISIONS. CRYO REMAINED IN [place] T/O THE NIGHT. AQUACEL DRESSING IS INTACT. SOME SMALL SPOTS OF EXUDATE. VSS. PT SLEPT ON AND OFF T/O THE NIGHT. AMBULATING TO THE BATHROOM WITH SBA FWW/ GT BELT. MEDICATED FOR PAIN WITH SCHEDULED AND TID PO DILAUDID. NO ACUTE EVENTS NOTED. PLAN TO WORK WITH PT TODAY AND D/C HOME.
[2023-08-16 07:58] VITALS: BP 129/75
[2023-08-16] MEDS ORDERED: XARELTO20 MG PO (10:47)
[2023-08-16] MEDS ORDERED: HYDMOR2 PO (10:48)
[2023-08-16] MEDS ORDERED: CEPH500 PO (10:48)
--- NOTE | 2023-08-16 11:44 | NUR ---
DISCHARGE: PT ABLE TO PASS THERAPY. OK FOR DC. DC PACKET PRINTED AND PT EDUCATED. PT REPORTS ALREADY HAS SCRIPTS FOR ANTIBIOTIC AND XERELTO. PT GIVEN SCRIPT FOR DILAUDID. PT ALSO GIVEN EXTRA AQUACEL DRESSINGS. PT LEFT UNIT VIA WHEELCHAIR WITH THIS RN AND HER SON.
== END 2023-08-16 11:24 | disposition home or self-care (01) ==
LOC: ORSCMMR 08:05 → ORD 10:45 → SURS 12:44 → ORSCMMR 08-16 11:24
PROVIDERS: Orthopaedic Surgery
PROC: 0SRD0JA Replacement of Left Knee Joint with Synthetic Substitute, Uncemented, Open Approach (ICD-10-PCS; principal; 2023-08-14 08:30)
DX: M17.12 Unilateral primary osteoarthritis, left knee (principal); J44.9 Chronic obstructive pulmonary disease, unspecified; K74.60 Unspecified cirrhosis of liver; Z87.891 Personal history of nicotine dependence; G47.33 Obstructive sleep apnea (adult) (pediatric); Z86.19 Personal history of other infectious and parasitic diseases; Z79.899 Other long term (current) drug therapy
CPT/HCPCS: 36415; 73560-LT; 80048; 83735; 85025; 94640; 94664; 94760; 97110; 97116; 97162; 97530; A9270; C1713; C1776; J0171; J0690; J0735; J1170; J1885; J2250; J2704; J2795; J3010; J3370; J7120

== ENCOUNTER 2024-05-23 15:18 | Emergency (ER) | payer OTHER ==
[~2024-05-23] VITALS: Ht 160 cm; Wt 72.6 kg
[~2024-05-23 15:18] MED LIST changes: +HYDMOR2 PO; +XARELTO20 MG PO
[2024-05-23 16:15] LABS: BASOPHILS ABSOLUTE AUTO 0.03 K/mm3 (0.00-0.23); BASOPHILS PERCENT AUTO 0 % (0-2); EOSINOPHILS ABSOLUTE AUTO 0.01 K/mm3 (0.00-0.68); EOSINOPHILS PERCENT AUTO 0 % (0-6); Hematocrit 45.4 % (33.0-51.0); Hemoglobin 15.2 g/dL (11.5-16.0); IMMATURE GRAN ABSOLUTE AUTO 0.11 K/mm3 (0.00-0.10); IMMATURE GRAN PERCENT AUTO 1 % (0-1); LYMPHOCYTES ABSOLUTE AUTO 1.15 K/mm3 (0.84-5.20); LYMPHOCYTES PERCENT AUTO 13 % (21-46); MONOCYTES ABSOLUTE AUTO 0.38 K/mm3 (0.16-1.47); MONOCYTES PERCENT AUTO 4 % (4-13); Mean Corpuscular HGB 30.6 pg (26.0-34.0); Mean Corpuscular HGB Conc 33.5 g/dL (31.5-36.5); Mean Corpuscular Volume 91 fL (80-100); NEUTROPHILS ABSOLUTE AUTO 7.03 K/mm3 (1.96-9.15); NEUTROPHILS PERCENT AUTO 81 % (41-73); RDW Coefficient Variation 14.8 % (11.7-14.2); RDW Standard Deviation 49.1 fL (35.1-46.3); Red Blood Cell Count 4.97 M/mm3 (3.80-5.20); White Blood Cell Count 8.71 K/mm3 (4.00-11.30)
[2024-05-23 16:35] LABS: Albumin/Globulin Ratio 1.3 (0.8-1.8); Bilirubin, Total 0.4 mg/dL (0.1-1.0); Bun/Creatinine Ratio 15.6 (12.0-20.0); Calcium, Blood 9.3 mg/dL (8.5-10.1); Creatinine, Blood 1.22 mg/dL (0.40-1.00); Globulin, Blood 3.1 g/dL (2.2-4.0); Potassium, Blood 4.6 mmol/L (3.5-5.5); Total Protein, Blood 7.1 g/dL (6.4-8.2)
[2024-05-23] MEDS ORDERED: Albuterol 2.5 MG/3 ML VIAL INH SCH (19:05)
[2024-05-23] MEDS ORDERED: Ipratropium Bromide INH 0.02% 0.5 mg/2.5ML Vial INH SCH (19:05)
[2024-05-23] MEDS ORDERED: MethylPREDNISolone Sod Succ 125 MG Vial IV ONE (19:20)
[2024-05-23] MEDS ORDERED: MethylPREDNISolone Sod Succ 125 MG Vial IM ONE (20:05)
[2024-05-23 20:30] VITALS: BP 145/89
[2024-05-23] MEDS ORDERED: DOXY100 PO (20:53)
[2024-05-23] MEDS ORDERED: PRED20 PO (20:53)
== END 2024-05-23 21:06 | disposition home or self-care (01) ==
LOC: ER 15:18
PROVIDERS: Student in an Organized Health Care Education/Training Program
DX: K42.9 Umbilical hernia without obstruction or gangrene (principal); J44.1 Chronic obstructive pulmonary disease with (acute) exacerbation; Z79.51 Long term (current) use of inhaled steroids; Z79.899 Other long term (current) drug therapy; Z79.52 Long term (current) use of systemic steroids; Z91.013 Allergy to seafood; Z88.6 Allergy status to analgesic agent; Z88.1 Allergy status to other antibiotic agents; Z88.5 Allergy status to narcotic agent; Z88.8 Allergy status to other drugs, medicaments and biological substances
CPT/HCPCS: 36415; 71045; 76857; 80053; 83690; 85025; 94644; 94664; 96372; 99284-25; J2919

== ENCOUNTER 2024-10-16 11:07 | Day surgery (SDC) | payer OTHER ==
[2024-10-16] VITALS (11 sets, daily range): BP systolic 96–150; BP diastolic 45–94
[~2024-10-16] VITALS: Ht 160 cm; Wt 71.4 kg
[~2024-10-16 11:07] MED LIST changes: +ALBU2.5V5 INH; +BUTALB-ACETAMI1 EAC6 PO; -GUAI200 PO; +IPRAT-ALBUT 0.5-3 ML INH; -VITAMIN D310 MC4 PO; +VITAMIN D350 MC3 PO; +WIXELA 500-501 EAC1 INH
[2024-10-16] MEDS ORDERED: CeFAZolin Sodium 2,000 MG in NS 100 ML IV SCH (11:10)
[2024-10-16] MEDS ORDERED: Lactated Ringer's 1,000 ML IV SCH (11:10)
--- NOTE | 2024-10-16 11:22 | NUR ---
History, Chart, Medications and Allergies reviewed before start of procedure. Patient confirms NPO status and agrees with scheduled surgery. Removed aspirin and codeine from allergy list per patient request. States she is not allergic to those medications.
--- NOTE | 2024-10-16 11:36 | NUR ---
LUNGS DIMINISHED TO POSTERIOR BASES BILAT. EXP WHEEZES AUSCULTATED T/O.
[2024-10-16] MEDS ORDERED: Acetamin/Butalbital/Caffeine Tab PO PRN (12:00)
--- NOTE | 2024-10-16 12:31 | NUR ---
MEDICATED FOR C/O 04/04 "MIGRAINE" HEADACHE. PT REPORTS NOT TAKING HER REGULARY PRESCRIBE MIGRAINE MEDICATION THIS AM.
--- NOTE | 2024-10-16 13:32 | NUR ---
PATIENT STATES HER HEADACHE IS IMPROVING SINCE ANALGESIC AND IS TOLERABLE. RATES 02/02.
[2024-10-16] MEDS ORDERED: Bupivacaine 0.5% HCl 5 MG/ML 30MLVIAL ONE (13:51)
[2024-10-16] MEDS ORDERED: propofoL 20 ML IV ONE (14:10)
[2024-10-16] MEDS ORDERED: FentaNYL Citrate 50 MCG/ML 2 ML Injection ONE ×3 (14:10→16:42)
[2024-10-16] MEDS ORDERED: Midazolam HCl 1MG / ML 2ML Vial ONE (14:10)
[2024-10-16] MEDS ORDERED: Ondansetron HCl 2 MG / ML 2ML Vial ONE (14:30)
[2024-10-16] MEDS ORDERED: Ketorolac Tromethamine 30mg Vial ONE (14:30)
[2024-10-16] MEDS ORDERED: Dexamethasone Sod Phos 10 MG/ML 1ML VIAL ONE (14:30)
[2024-10-16] MEDS ORDERED: Rocuronium Bromide 10 MG/ML 5ML Injection IV ONE ×3 (14:30→15:47)
[2024-10-16] MEDS ORDERED: Sugammadex Sodium 200 MG/2ML SDV (100 MG/ML) ONE (14:32)
[2024-10-16] MEDS ORDERED: HYDROmorphone HCl/Pf 1MG SYR ONE (14:39)
[2024-10-16] MEDS ORDERED: OxyCODONE 5 mg/Acetamin 325 mg TABLET PO PRN ×2 (17:25→17:30)
== END 2024-10-16 23:00 | disposition home or self-care (01) ==
LOC: ORSCMMR 11:07 → ORD 12:15 → ORSCMMR 12:15
PROVIDERS: Surgery
PROC: 8E0W4CZ Robotic Assisted Procedure of Trunk Region, Percutaneous Endoscopic Approach (ICD-10-PCS; principal; 2024-10-16 12:15)
PROC: 0WUF4JZ Supplement Abdominal Wall with Synthetic Substitute, Percutaneous Endoscopic Approach (ICD-10-PCS; principal; 2024-10-16 12:15)
DX: K43.6 Other and unspecified ventral hernia with obstruction, without gangrene (principal); Z87.891 Personal history of nicotine dependence; J44.9 Chronic obstructive pulmonary disease, unspecified; G47.33 Obstructive sleep apnea (adult) (pediatric); K74.60 Unspecified cirrhosis of liver; B19.20 Unspecified viral hepatitis C without hepatic coma; Z79.899 Other long term (current) drug therapy
CPT/HCPCS: A9270; C1781; J0690; J1100; J1171; J1885; J2250; J2405; J2704; J3010; J7120